=== PATIENT | male | born 1980 | race Caucasian/White ===

== ENCOUNTER 2017-03-09 20:05 | Emergency (ER) | payer OTHER, SELFPAY ==
[~2017-03-09] VITALS: Ht 172.7 cm; Wt 73.5 kg
[2017-03-09 20:09] VITALS: BP 135/92
[2017-03-09] MEDS ORDERED: LIDOCAINE-MPF 2% ,5ML ONE (21:11)
[2017-03-09] MEDS ORDERED: LIDOCAINE 2%, 20ML SQ ONE (21:30)
[2017-03-09] MEDS ORDERED: DIPH,PERTUSS(ACELL),TET VAC/PF 0.5 ML IM-VACC ONE ×2 (22:00→22:17)
== END 2017-03-09 22:33 | disposition home or self-care (01) ==
LOC: ED 22:27
DX: S61.012A Laceration without foreign body of left thumb without damage to nail, initial encounter (principal); J45.909 Unspecified asthma, uncomplicated; W45.8XXA Other foreign body or object entering through skin, initial encounter; Y93.89 Activity, other specified; Y92.009 Unspecified place in unspecified non-institutional (private) residence as the place of occurrence of the external cause; Y99.9 Unspecified external cause status
CPT/HCPCS: 12002; 73140; 90471; 90715; 99284; J3490

== ENCOUNTER 2017-06-03 13:27 | Inpatient (IN) | payer OTHER ==
[~2017-06-03] VITALS: Ht 172.7 cm; Wt 79.8 kg
[2017-06-03] MEDS ORDERED: ALBUTEROL/IPRATROPIUM 2.5MG/0.5MG, 3 ML NPPB ONE (14:00)
[2017-06-03] MEDS ORDERED: SODIUM CHLORIDE FLUSH 10ML SYR IVF ONE (14:00)
[2017-06-03] MEDS ORDERED: SODIUM CHLORIDE 0.9% 1,000ML IVBOLUS ONE (14:00)
[2017-06-03] MEDS ORDERED: ALBUTEROL/IPRATROPIUM 2.5MG/0.5MG, 3 ML ONE ×2 (14:13→18:08)
[2017-06-03 14:17] LABS: BASOPHILS % (AUTO) 0 % (0-1); EOSINOPHILS % (AUTO) 0 % (1-7); LYMPHOCYTES # (AUTO) 0.35 x10^3/uL (1-3.4); LYMPHOCYTES % (AUTO) 5 % (22-44); MD NO; MEAN CORPUSCULAR HEMOGLOBIN 30.6 pg (27.5-34.5); MEAN CORPUSCULAR HGB CONC 34.4 g/dL (33.2-36.2); MEAN CORPUSCULAR VOLUME 88.9 fL (81-97); MONOCYTES # (AUTO) 0.45 x10^3/uL (0.2-0.8); MONOCYTES % (AUTO) 6 % (2-9); NEUTROPHILS # (AUTO) 6.49 x10^3/uL (1.8-6.8); NEUTROPHILS % (AUTO) 89 % (42-75); PLATELET COUNT 163 x10^3/uL (130-400); RED BLOOD COUNT 5.21 x10^6/uL (4.38-5.82); RED CELL DISTRIBUTION WIDTH 13.1 % (9.4-14.8)
[2017-06-03 14:26] LABS: ALBUMIN 4.1 g/dL (3.4-5.0); ANION GAP 9 mmol/L (5-15); CALCIUM 8.9 mg/dL (8.5-10.1); CHLORIDE 101 mmol/L (98-107)
[2017-06-03] MEDS ORDERED: ACETAMINOPHEN 325 MG TABLET PO ONE (14:30)
[2017-06-03 14:32] LABS: CREATININE 0.94 mg/dL (0.7-1.3); TROPONIN I < 0.015 ng/mL (0.000-0.045)
[2017-06-03] MEDS ORDERED: ACETAMINOPHEN 325 MG TABLET ONE (15:32)
[2017-06-03] MEDS ORDERED: ALBU0.63 NEB (16:24)
[2017-06-03] MEDS ORDERED: ONDANSETRON ODT 4 MG PO PRN (16:30)
[2017-06-03] MEDS ORDERED: morphine SULFATE 10 MG/ML, 1ML IVPush PRN (16:30)
[2017-06-03] MEDS ORDERED: ONDANSETRON 2MG/ML, 2ML IVPush PRN (16:30)
[2017-06-03] MEDS ORDERED: POLYETHYLENE GLYCOL 17 GM PACKET PO PRN (16:30)
[2017-06-03] MEDS ORDERED: LABETALOL 5MG/ML, 20ML IVPush PRN (16:30)
[2017-06-03] MEDS ORDERED: POTASSIUM CHLORIDE 20 MEQ TAB.ER.PRT PO ONE (16:30)
[2017-06-03 16:31] LABS: INTERNATIONAL NORMALIZED RATIO 1.04 (0.93-1.1); PROTHROMBIN TIME 10.8 Seconds (9.6-11.5)
[2017-06-03] MEDS ORDERED: TEMPLATE NON-FORMULARY MED. (Albuterol Sulfate (Albuterol Sulfate**) 1 VIAL) NEB PRN (17:30)
[2017-06-03] MEDS ORDERED: POTASSIUM CHLORIDE 20 MEQ TAB.ER.PRT ONE (17:46)
[2017-06-03] MEDS ORDERED: methylPREDNISolone SOD SUCC 125 MG/2 ML ONE (17:46)
[2017-06-03] MEDS ORDERED: ENOXAPARIN 40 MG/0.4 ML ONE (17:47)
[2017-06-03] MEDS: ENOXAPARIN 40 MG/0.4 ML SQ SCH (17:48)
[2017-06-03] MEDS: methylPREDNISolone SOD SUCC 125 MG/2 ML IVPush SCH ×2 (17:49→23:50)
[2017-06-03] MEDS: ALBUTEROL SULFATE 2.5 MG/3 ML NPPB SCH (18:22)
[2017-06-03 19:50] VITALS: BP 122/77
[2017-06-03] MEDS: SODIUM CHLORIDE 0.9% 1,000 ML IV SCH (21:59)
[2017-06-03 22:19] VITALS: BP 122/77
[2017-06-04] MEDS: ALBUTEROL SULFATE 2.5 MG/3 ML NPPB SCH ×5 (01:50→19:06)
[2017-06-04 02:58] VITALS: BP 132/72
[2017-06-04] MEDS: GUAIFENESIN/DM 200-20MG, 10ML UDC PO PRN (03:11)
[2017-06-04] MEDS: methylPREDNISolone SOD SUCC 125 MG/2 ML IVPush SCH ×3 (05:37→17:26)
[2017-06-04] MEDS: SODIUM CHLORIDE 0.9% 1,000 ML IV SCH ×2 (06:34→16:48)
[2017-06-04 07:37] VITALS: BP 124/74
[2017-06-04] MEDS: SENNA/DOCUSATE TABLET PO SCH (09:00)
[2017-06-04 09:58] LABS: RAPID INFLUENZA A Negative (Negative); RAPID INFLUENZA B Negative (Negative)
[2017-06-04 10:38] LABS: BASOPHILS % (AUTO) 0 % (0-1); EOSINOPHILS % (AUTO) 0 % (1-7); LYMPHOCYTES # (AUTO) 0.51 x10^3/uL (1-3.4); LYMPHOCYTES % (AUTO) 5 % (22-44); MD NO; MEAN CORPUSCULAR HEMOGLOBIN 30.9 pg (27.5-34.5); MEAN CORPUSCULAR HGB CONC 34.2 g/dL (33.2-36.2); MEAN CORPUSCULAR VOLUME 90.2 fL (81-97); MEAN PLATELET VOLUME 10.9 fL (7.4-10.4); MONOCYTES # (AUTO) 0.15 x10^3/uL (0.2-0.8); MONOCYTES % (AUTO) 2 % (2-9); NEUTROPHILS # (AUTO) 8.83 x10^3/uL (1.8-6.8); NEUTROPHILS % (AUTO) 93 % (42-75); PLATELET COUNT 175 x10^3/uL (130-400); RED BLOOD COUNT 4.84 x10^6/uL (4.38-5.82); RED CELL DISTRIBUTION WIDTH 14.1 % (9.4-14.8)
[2017-06-04 10:43] LABS: ALANINE AMINOTRANSFERASE 27 U/L (12-78); ALBUMIN 3.5 g/dL (3.4-5.0); ANION GAP 11 mmol/L (5-15); CALCIUM 8.3 mg/dL (8.5-10.1); CHLORIDE 104 mmol/L (98-107)
[2017-06-04 10:45] LABS: ALKALINE PHOSPHATASE 57 U/L (45-117); BILIRUBIN,TOTAL 0.3 mg/dL (0.2-1.0); CREATININE 0.99 mg/dL (0.7-1.3)
[2017-06-04 11:00] LABS: CLOSTRIDIUM DIFFICILE ANTIGEN NEGATIVE; CLOSTRIDIUM DIFFICILE TOXIN NEGATIVE (Negative)
[2017-06-04 12:55] VITALS: BP 125/72
[2017-06-04] MEDS: HYDROcodone/APAP 5/325 TABLET PO PRN (16:58)
[2017-06-04] MEDS: ENOXAPARIN 40 MG/0.4 ML SQ SCH (17:26)
[2017-06-04 18:49] VITALS: BP 129/66
[2017-06-05] MEDS: methylPREDNISolone SOD SUCC 125 MG/2 ML IVPush SCH ×4 (00:11→17:45)
[2017-06-05] MEDS: HYDROcodone/APAP 5/325 TABLET PO PRN ×4 (00:18→23:27)
[2017-06-05] MEDS: SODIUM CHLORIDE 0.9% 1,000 ML IV SCH ×2 (02:00→17:47)
[2017-06-05 02:02] VITALS: BP 134/78
[2017-06-05] MEDS: ALBUTEROL SULFATE 2.5 MG/3 ML NPPB SCH ×6 (02:30→23:10)
[2017-06-05 05:49] LABS: BASOPHILS # (AUTO) 0.01 x10^3/uL (0-0.1); BASOPHILS % (AUTO) 0 % (0-1); EOSINOPHILS % (AUTO) 0 % (1-7); LYMPHOCYTES # (AUTO) 0.71 x10^3/uL (1-3.4); LYMPHOCYTES % (AUTO) 5 % (22-44); MD NO; MEAN CORPUSCULAR HEMOGLOBIN 30.7 pg (27.5-34.5); MEAN CORPUSCULAR HGB CONC 33.9 g/dL (33.2-36.2); MEAN CORPUSCULAR VOLUME 90.8 fL (81-97); MEAN PLATELET VOLUME 10.7 fL (7.4-10.4); MONOCYTES # (AUTO) 0.59 x10^3/uL (0.2-0.8); MONOCYTES % (AUTO) 4 % (2-9); NEUTROPHILS # (AUTO) 12.07 x10^3/uL (1.8-6.8); NEUTROPHILS % (AUTO) 90 % (42-75); PLATELET COUNT 190 x10^3/uL (130-400); RED BLOOD COUNT 4.82 x10^6/uL (4.38-5.82); RED CELL DISTRIBUTION WIDTH 14.1 % (9.4-14.8)
[2017-06-05 05:59] LABS: ALBUMIN 3.3 g/dL (3.4-5.0); ANION GAP 8 mmol/L (5-15); CALCIUM 8.1 mg/dL (8.5-10.1); CHLORIDE 106 mmol/L (98-107); CREATININE 0.71 mg/dL (0.7-1.3)
[2017-06-05 07:11] VITALS: BP 127/80
[2017-06-05] MEDS: SENNA/DOCUSATE TABLET PO SCH (07:42)
[2017-06-05] MEDS ORDERED: SODIUM PHOSPHATE 30 MMOL in SODIUM CHLORIDE 0.9% 500 ML IV ONE (11:00)
[2017-06-05] MEDS ORDERED: SODIUM PHOSPHATE 4 MEQ/ML IV SCH (11:00)
[2017-06-05] MEDS ORDERED: OMNIPAQUE 350 MG/ML, 100ML BOTTLE ONE (11:34)
[2017-06-05 13:50] VITALS: BP 130/75
[2017-06-05] MEDS: ENOXAPARIN 40 MG/0.4 ML SQ SCH (17:45)
[2017-06-05 19:38] VITALS: BP 121/66
[2017-06-05] MEDS: GUAIFENESIN/DM 200-20MG, 10ML UDC PO PRN (23:27)
[2017-06-06] MEDS: methylPREDNISolone SOD SUCC 125 MG/2 ML IVPush SCH ×2 (00:29→06:35)
[2017-06-06 01:05] VITALS: BP 120/66
[2017-06-06] MEDS: SODIUM CHLORIDE 0.9% 1,000 ML IV SCH (03:32)
[2017-06-06 05:28] LABS: BASOPHILS % (AUTO) 0 % (0-1); EOSINOPHILS % (AUTO) 0 % (1-7); LYMPHOCYTES # (AUTO) 0.67 x10^3/uL (1-3.4); LYMPHOCYTES % (AUTO) 6 % (22-44); MD NO; MEAN CORPUSCULAR HEMOGLOBIN 30.8 pg (27.5-34.5); MEAN CORPUSCULAR HGB CONC 33.8 g/dL (33.2-36.2); MEAN PLATELET VOLUME 10.7 fL (7.4-10.4); MONOCYTES # (AUTO) 0.58 x10^3/uL (0.2-0.8); MONOCYTES % (AUTO) 5 % (2-9); NEUTROPHILS # (AUTO) 10.12 x10^3/uL (1.8-6.8); NEUTROPHILS % (AUTO) 89 % (42-75); PLATELET COUNT 201 x10^3/uL (130-400); RED BLOOD COUNT 4.58 x10^6/uL (4.38-5.82); RED CELL DISTRIBUTION WIDTH 13.9 % (9.4-14.8)
[2017-06-06 05:35] LABS: CHLORIDE 103 mmol/L (98-107)
[2017-06-06 05:36] LABS: ALBUMIN 3.2 g/dL (3.4-5.0); ANION GAP 10 mmol/L (5-15)
[2017-06-06 05:37] LABS: CREATININE 0.77 mg/dL (0.7-1.3)
[2017-06-06 06:29] VITALS: BP 124/72
[2017-06-06] MEDS: ALBUTEROL SULFATE 2.5 MG/3 ML NPPB SCH ×3 (07:00→13:30)
[2017-06-06] MEDS: SENNA/DOCUSATE TABLET PO SCH (09:00)
[2017-06-06] MEDS ORDERED: BUDE10.2 INH (12:54)
[2017-06-06] MEDS ORDERED: PRED20TA PO (12:54)
[2017-06-06 13:04] VITALS: BP 125/76
== END 2017-06-06 14:28 | disposition home or self-care (01) | DRG 189 ==
LOC: ED 15:03 → EDIP 16:11 → 3NE 19:50 → DCLOUNGE 06-06 14:20
PROVIDERS: ADMIT Hospitalist; ATTEND Hospitalist
DX: J96.01 Acute respiratory failure with hypoxia (principal); E44.1 Mild protein-calorie malnutrition; J45.51 Severe persistent asthma with (acute) exacerbation; E87.1 Hypo-osmolality and hyponatremia; K52.9 Noninfective gastroenteritis and colitis, unspecified; Z68.26 Body mass index [BMI] 26.0-26.9, adult; E87.6 Hypokalemia; F17.210 Nicotine dependence, cigarettes, uncomplicated; Z83.3 Family history of diabetes mellitus; Z80.3 Family history of malignant neoplasm of breast
CPT/HCPCS: 36415; 71045; 71275; 80048; 80053; 82040; 83735; 84100; 84484; 85025; 85379; 85610; 85730; 87040; 87324; 87400; 89055; 93005; 94640; 96360; 96361; 96372; J1650; J7613; J7620; Q9967; J2930; J7030; J7040; J7512

== ENCOUNTER → 2018-02-04 | Outpatient (CLI) | payer OTHER ==
[~2018-02-04] MED LIST: ALBU0.63 NEB; BUDE10.2 INH; PRED20TA PO
== END | disposition home or self-care (01) ==
LOC: CVU 06:36
PROVIDERS: ATTEND Nurse Practitioner
DX: J45.909 Unspecified asthma, uncomplicated (principal); R09.02 Hypoxemia; G47.36 Sleep related hypoventilation in conditions classified elsewhere; Z87.891 Personal history of nicotine dependence
CPT/HCPCS: 93306

== ENCOUNTER → 2018-04-29 | Outpatient (CLI) | payer OTHER | END | disposition home or self-care (01) | LOC: CVU 07:02 | PROVIDERS: ATTEND Internal Medicine Cardiovascular Disease | DX: J96.11 Chronic respiratory failure with hypoxia (principal); Z72.0 Tobacco use | CPT/HCPCS: 93306 ==